=== PATIENT | male | born 1960 | race Caucasian/White ===

== ENCOUNTER 2023-03-04 05:40 | Observation (INO) ==
[~2023-03-04 05:40] MED LIST: Buffered Lidocaine 1% SYRIN 1 ml INTRADERM ONE; HYDROcodone/ACETAMIN 5/325 mg TAB PO PRN; Lactated Ringers 1000 ml BAG 1,000 ML IV SCH; Metoclopramide 5 MG/ML VIAL (10 mg) IV PRN; Naloxone 0.4 mg VIAL 0.4 mg/ml 1 ml VIAL IV PRN; Ondansetron 4 mg VIAL 2 MG/ML 2 ml VIAL IV PRN
[2023-03-04] MEDS ORDERED: ceFAZolin 2 GM in NS PREMIX 2 GM/100 ML BAG IVPB ONE (05:55)
[2023-03-04 06:21] LABS: Rapid COVID-19 Molecular Undetected (Undetected)
[2023-03-04] MEDS ORDERED: Vancomycin 1,000 MG VIAL ONE (06:55)
[2023-03-04] MEDS ORDERED: Bupivacaine 0.5% SDV PF 30ML VIAL ONE (06:55)
[2023-03-04] MEDS ORDERED: Propofol 10 MG/ML 20 ML BTL ONE ×2 (07:03→08:18)
[2023-03-04] MEDS ORDERED: Dexamethasone IV 4 MG/ML VIAL 1 ml VIAL ONE (07:03)
[2023-03-04] MEDS ORDERED: Rocuronium 50 mg VIAL 10 mg/ml 5 ml VIAL (50 mg) ONE ×2 (07:03→08:37)
[2023-03-04] MEDS ORDERED: Midazolam 2 mg/2 ml VIAL 1 mg/ml 2 ml VIAL (2 mg) ONE (07:03)
[2023-03-04] MEDS ORDERED: fentaNYL 100 mcg/2 ml 50 MCG/ML VIAL ONE ×2 (07:03→11:50)
[2023-03-04] MEDS ORDERED: Ondansetron 4 mg VIAL 2 MG/ML 2 ml VIAL ONE ×2 (07:03→11:50)
[2023-03-04] MEDS ORDERED: Sevoflurane BOTTLE ONE (07:04)
[2023-03-04] MEDS ORDERED: Phenylephrine IV 10 MG/ML 1 ml VIAL ONE (07:04)
[2023-03-04] MEDS ORDERED: Sterile Water for Inj 10 ML ONE (07:04)
[2023-03-04] MEDS ORDERED: fentaNYL 250 mcg/5 ml 50 MCG/ML 5 ml VIAL (250 MCG) ONE (07:42)
[2023-03-04] MEDS ORDERED: KETAMINE HCL 10 MG/ML 20 ml VIAL (200 MG) ONE (08:18)
[2023-03-04] MEDS ORDERED: Phenylephrine 40 mcg/mL 10mL (400mcg) SYRINGE ONE (10:15)
[2023-03-04] MEDS ORDERED: Morphine 2 MG/ML SYRINGE IV PRN ×2 (10:44→12:29)
[2023-03-04] MEDS ORDERED: Magnesium Hydroxide LIQ 30 ML UDC PO PRN ×2 (10:44→12:29)
[2023-03-04] MEDS ORDERED: Ondansetron ODT 4 mg TAB 4 MG TAB PO PRN ×2 (10:44→12:29)
[2023-03-04] MEDS ORDERED: Lactulose 30 ml UDC PO PRN ×2 (10:44→12:29)
[2023-03-04] MEDS ORDERED: Ondansetron 4 mg VIAL 2 MG/ML 2 ml VIAL IV PRN ×2 (10:44→12:29)
[2023-03-04] MEDS ORDERED: Lactated Ringers 1000 ml BAG 1,000 ML IV SCH (11:00)
[2023-03-04] MEDS ORDERED: ceFAZolin 1 GM ADVAN 1 GM in NS 0.9% 50 ML 50 ML IVPB SCH (11:00)
[2023-03-04] MEDS: fentaNYL 100 mcg/2 ml 50 MCG/ML VIAL IV PRN ×2 (11:52→12:01)
[2023-03-04] MEDS ORDERED: Metoclopramide 5 MG/ML VIAL (10 mg) IV PRN (12:29)
[2023-03-04] MEDS ORDERED: HYDROcodone/ACETAMIN 5/325 mg TAB PO PRN (12:29)
[2023-03-04] MEDS ORDERED: Naloxone 0.4 mg VIAL 0.4 mg/ml 1 ml VIAL IV PRN (12:31)
[2023-03-04] MEDS: Lactated Ringers 1000 ml BAG 1,000 ML IV SCH (12:49)
[2023-03-04 13:55] LABS: Hepatitis B Surface Antigen Nonreactive (Nonreactive)
[2023-03-04 14:04] LABS: HIV 4th Generation Nonreactive (Nonreactive)
[2023-03-04 14:13] LABS: Hepatitis C Antibody Negative (Negative)
[2023-03-04] MEDS: ceFAZolin 1 GM ADVAN 1 GM in NS 0.9% 50 ML 50 ML IVPB SCH (15:52)
[2023-03-04] MEDS ORDERED: Magnesium Hydroxide LIQ 30 ML UDC PO SCH (21:00)
[2023-03-04] MEDS: Magnesium Hydroxide LIQ 30 ML UDC PO SCH (21:59)
[2023-03-05] MEDS: Lactated Ringers 1000 ml BAG 1,000 ML IV SCH (00:26)
[2023-03-05] MEDS: ceFAZolin 1 GM ADVAN 1 GM in NS 0.9% 50 ML 50 ML IVPB SCH ×2 (00:27→07:51)
[2023-03-05] MEDS: Magnesium Hydroxide LIQ 30 ML UDC PO SCH (07:49)
[2023-03-05 08:39] LABS: Platelet Count 164 10^3/uL (150-450)
[2023-03-05 08:52] LABS: Hematocrit 29.5 % (38-53); Hemoglobin 10.4 g/dL (13.2-16.3); Mean Platelet Volume 8.7 fL (7.5-11.2)
[2023-03-05 08:56] LABS: Calcium 8.6 mg/dL (8.6-10.3); Creatinine, Serum 1.44 mg/dL (0.67-1.17); Potassium 4.4 mmol/L (3.5-5.0); eGFR CKD-EPI 54.6 (>60)
[2023-03-05] MEDS ORDERED: Vitamin THERAPEUTIC TAB PO SCH ×2 (09:00)
[2023-03-05 14:25] VITALS: BP 101/60
== END 2023-03-05 19:10 ==
LOC: INTOOBSV 05:40 → AA 05:40 → SSU 10:44 → UNDODISIN 12:25
PROVIDERS: ADMIT Orthopaedic Surgery; ATTEND Orthopaedic Surgery